=== PATIENT | male | born 1975 | race Two or more races ===

== ENCOUNTER 2016-07-04 17:58 | Emergency (ER) | payer MEDICAID ==
[~2016-07-04] VITALS: Ht 170.2 cm; Wt 81.6 kg
--- NOTE | 2016-07-04 18:05 | NUR ---
AAOX3, C/O LEFT FLANK PAIN- STARTED AT 0400 AM; SHARP 10/10; RADIATE TO HIS CHEST NO NAUSEA; NO VOMITING; NO FEVER. RESP IS EVEN AND UNLABORED WITH NAD NOTED. SKIN IS WARM AND DRY. AWAITING MD FOR EVAL.
--- NOTE | 2016-07-04 18:08 | NUR ---
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
[2016-07-04] MEDS ORDERED: MORPHINE SULFATE INJ 4 MG/ML DISP.SYRIN ONE (18:25)
[2016-07-04] MEDS ORDERED: KETOROLAC TROMETHAMINE INJ 30 MG/ML VIAL ONE (18:26)
[2016-07-04] MEDS ORDERED: ONDANSETRON HCL/PF 4 MG/2 ML VIAL ONE (18:26)
[2016-07-04] MEDS: ONDANSETRON HCL/PF 4 MG/2 ML VIAL IVP ONE (18:28)
[2016-07-04] MEDS: MORPHINE SULFATE INJ 2 MG/ML DISP.SYRIN IV ONE (18:30)
[2016-07-04] MEDS ORDERED: MORPHINE SULFATE INJ 10 MG/ML DISP.SYRIN IM ONE (18:30)
[2016-07-04] MEDS: KETOROLAC TROMETHAMINE INJ 30 MG/ML VIAL IV ONE (18:33)
[2016-07-04] MEDS: ONDANSETRON 4 MG TAB.RAPDIS SL ONE (18:33)
[2016-07-04 18:56] LABS: APPEARANCE,URINE Clear (CLEAR); BILIRUBIN,URINE Negative (NEGATIVE); BLOOD, URINE Trace-lysed Ery/uL (NEGATIVE); COLOR,URINE Yellow (YELLOW); KETONES,URINE Negative (NEGATIVE); LEUKOCYTE ESTERASE ,URINE Negative (NEGATIVE); NITRITE, URINE Negative (NEGATIVE); PROTEIN,URINE Negative (NEGATIVE); UGLUCOSE Negative (NEGATIVE); UROBILINOGEN,URINE 0.2 EU/dL (0.2)
[2016-07-04 19:05] LABS: ADD URINE CULTURE NO; BACTERIA,URINE None seen /HPF (None Seen); SQUAMOUS EPITHELIAL CELL,UR Few /HPF (None Seen); WBC,URINE 0-2 /HPF (0-3)
--- NOTE | 2016-07-04 19:07 | NUR ---
RECEIVED REPORT FROM PATO ORO FOR THOMAS.
--- NOTE | 2016-07-04 19:31 | NUR ---
PAC HONEY AT BEDSIDE SPEAKING TO PT REGARDING RESULTS/POC. EMT ZANE AT BEDSIDE TO TRANSLATE.
--- NOTE | 2016-07-04 19:43 | NUR ---
PT TO RADIOLOGY FOR CT ABD/PELVIS
--- NOTE | 2016-07-04 20:10 | NUR ---
PT RETURNED FROM CT.
[2016-07-04 20:17] LABS: BASOPHILS % (AUTO) 0.4 % (0.0-2.0); EOSINOPHILS # (AUTO) 0.2 /CMM (0.0-0.7); EOSINOPHILS % (AUTO) 2.2 % (0.0-6.0); HEMATOCRIT 45 % (39-51); HEMOGLOBIN 15.2 g/dL (13.5-17.5); LYMPHOCYTES % (AUTO) 26.8 % (20.0-44.0); MEAN CORPUSCULAR HEMOGLOBIN 30 PG (26.0-33.0); MEAN CORPUSCULAR HGB CONC 34 g/dl (31.0-36.0); MEAN CORPUSCULAR VOLUME 89 fL (80-96); MONOCYTES # (AUTO) 0.7 /CMM (0.1-1.30); NEUTROPHILS # (AUTO) 4.7 /CMM (1.8-8.9); NEUTROPHILS % (AUTO) 61.6 % (43.0-81.0); PLATELET COUNT (AUTO) 179 /CMM (150-450); RDW COEFFICIENT OF VARIATION 12.4 (11.5-15.0); RED BLOOD CELL COUNT(AUTO) 5.06 MIL/uL (4.5-6.0); WHITE BLOOD COUNT (AUTO) 7.6 K/uL (4.3-11.0)
[2016-07-04 20:24] LABS: CALCIUM, SERUM 9.1 mg/dL (8.5-10.1); CREATININE 1.2 mg/dL (0.6-1.3); POTASSIUM 3.9 mmol/L (3.5-5.1)
--- NOTE | 2016-07-04 20:56 | NUR ---
KEENAN MÉNDEZ AT BEDSIDE SPEAKING TO PT REGARDING RESULTS. ZANE AT BEDSIDE TO TRANSLATE
--- NOTE | 2016-07-04 21:12 | NUR ---
IV removed. Catheter intact and site benign. Pressure and 4x4 applied to site. No bleeding noted. Patient discharged to home in stable condition. Written and verbal after care instructions given. Patient verbalizes understanding of instruction. neelam bravo at bedside for translation. ambulatory with a steady gait. instructed pt not to drive. pt verbalize understanding.
[2016-07-04 21:15] VITALS: BP 135/68
== END 2016-07-04 21:16 | disposition home or self-care (01) ==
LOC: ER 18:02
DX: S33.9XXA Sprain of unspecified parts of lumbar spine and pelvis, initial encounter (principal); R79.89 Other specified abnormal findings of blood chemistry; X58.XXXA Exposure to other specified factors, initial encounter; Y93.89 Activity, other specified; Y92.89 Other specified places as the place of occurrence of the external cause; Y99.9 Unspecified external cause status
CPT/HCPCS: 36415; 74176; 80048; 81001; 85025; 96374; 96375; 99285; A4606; J1885; J2270; J2405; Z7610; 81000-TC

== ENCOUNTER 2017-02-10 11:56 | Emergency (ER) | payer MEDICAID ==
[~2017-02-10] VITALS: Ht 177.8 cm; Wt 86.2 kg
[2017-02-10 12:30] VITALS: BP 106/77
--- NOTE | 2017-02-10 14:10 | NUR ---
CALLED IN WR- NO TOMASAWER
--- NOTE | 2017-02-10 14:20 | NUR ---
CALLED IN WR- NO ANSWER
--- NOTE | 2017-02-10 14:26 | NUR ---
CALLED IN WR- NO ANSWER
== END 2017-02-10 14:27 | disposition left against medical advice (07) ==
LOC: ER 12:00
DX: Z53.21 Procedure and treatment not carried out due to patient leaving prior to being seen by health care provider (principal)
CPT/HCPCS: A4606; Z7610

== ENCOUNTER → 2017-09-25 | Emergency (ER) | payer MEDICAID, OTHER ==
[~2017-09-25] VITALS: Ht 177.8 cm; Wt 90.7 kg
[~2017-09-25] MED LIST: IV NS 0.9% 1,000 ML BAG IV ONE; KETOROLAC TROMETHAMINE 15 MG/ML VIAL ONE; KETOROLAC TROMETHAMINE INJ 30 MG/ML VIAL IV ONE; MORPHINE SULFATE INJ 2 MG/ML DISP.SYRIN IV ONE; MORPHINE SULFATE INJ 4 MG/ML DISP.SYRIN ONE; ONDANSETRON HCL/PF 4 MG/2 ML VIAL IVP ONE; ONDANSETRON HCL/PF 4 MG/2 ML VIAL ONE
--- NOTE | 2017-09-25 20:07 | NUR ---
PT AMBULATORY TO ER BED 10. BIB DAUGHTER C/O LUQ ABD PAIN RADIATES TO RUQ ABD X 2 YRS. WORSE THE PAST FEW DAYS. DENIES N/V/D. 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 VSS/RESP EVEN UNLABORED/NAD NOTED/SKIN WARM AND DRY/AFEBRILE/DENIES N-V-D/AOX4. AWAITNG MD [facility].
--- NOTE | 2017-09-25 20:30 | NUR ---
URINE SPECIMEN OBTIANED AND SENT TO THE LAB.
--- NOTE | 2017-09-25 20:35 | NUR ---
18G IV TO L AC X 1 ATTEMPT USING ASEPTIC TECH, BLOOD HANDED OVER TO THE LAB AT BEDSIDE. IV FLUSHES EASILY WITH NS, NO S/S INFILTRATION NOTED AT THIS TIME.
[2017-09-25 20:49] LABS: BASOPHILS % (AUTO) 0.6 % (0.0-2.0); EOSINOPHILS % (AUTO) 1.9 % (0.0-6.0); HEMATOCRIT 44 % (39-51); HEMOGLOBIN 15.1 g/dL (13.5-17.5); LYMPHOCYTES # (AUTO) 2.2 /CMM (0.8-4.8); LYMPHOCYTES % (AUTO) 29.3 % (20.0-44.0); MEAN CORPUSCULAR HEMOGLOBIN 31 PG (26.0-33.0); MEAN CORPUSCULAR HGB CONC 34 g/dl (31.0-36.0); MEAN CORPUSCULAR VOLUME 90 fL (80-96); MONOCYTES # (AUTO) 0.6 /CMM (0.1-1.30); MONOCYTES % (AUTO) 7.9 % (2.0-12.0); NEUTROPHILS # (AUTO) 4.6 /CMM (1.8-8.9); NEUTROPHILS % (AUTO) 60.3 % (43.0-81.0); PLATELET COUNT (AUTO) 178 /CMM (150-450); RDW COEFFICIENT OF VARIATION 12.1 (11.5-15.0); RED BLOOD CELL COUNT(AUTO) 4.92 MIL/uL (4.5-6.0); WHITE BLOOD COUNT (AUTO) 7.5 K/uL (4.3-11.0)
[2017-09-25 20:59] LABS: CALCIUM, SERUM 9.6 mg/dL (8.5-10.1); CARBON DIOXIDE 31 mmol/L (21-32); CHLORIDE 102 mmol/L (98-107); CREATININE 1.1 mg/dL (0.6-1.3); GLUCOSE 108 mg/dL (74-106); POTASSIUM 3.7 mmol/L (3.5-5.1); SODIUM SERUM 136 mmol/L (136-145); UREA NITROGEN, BLOOD 14 mg/dL (7-18)
[2017-09-25 21:06] LABS: TROPONIN I < 0.017 ng/mL (0.00-0.056)
[2017-09-25 21:14] LABS: ALANINE AMINOTRANSFERASE 63 U/L (12-78); ALBUMIN 4.2 g/dL (3.4-5.0); ALKALINE PHOSPHATASE 86 U/L (46-116); ASPARTATE AMINOTRANSFERASE 31 U/L (15-37); BILIRUBIN,DIRECT 0.1 mg/dL (0.0-0.2); BILIRUBIN,TOTAL 0.5 mg/dL (0.2-1.0); LIPASE 197 U/L (73-393); TOTAL PROTEIN, SERUM 7.9 g/dL (6.4-8.2)
--- NOTE | 2017-09-25 22:25 | NUR ---
IV removed. Catheter intact and site benign. Pressure and 4x4 applied to site. No bleeding noted. Patient discharged with daughter to home in stable condition. Written and verbal after care instructions given, patient instructed not to drive. Patient verbalizes understanding of instruction. Patient is awake and alert to self, day, and place. Patient ambulatory with a steady gait.
[2017-09-25 22:27] VITALS: BP 126/74
== END | disposition home or self-care (01) ==
LOC: ER 19:53
DX: R10.12 Left upper quadrant pain (principal); R10.13 Epigastric pain
CPT/HCPCS: 36415; 71045; 74176; 80048; 80076; 83690; 84484; 85025; 96374; 96375; 99285; A4606; J1885; J2270; J2405; J7030; Z7610

== ENCOUNTER 2018-01-22 18:48 | Emergency (ER) | payer OTHER ==
[~2018-01-22] VITALS: Ht 170.2 cm; Wt 81.6 kg
[2018-01-22 18:48] VITALS: BP 133/77
[2018-01-22] MEDS ORDERED: ACETAMINOPHEN 650 MG/20.3 ML UDC PO ONE (19:30)
--- NOTE | 2018-01-22 19:35 | NUR ---
FLU SWAB PERFORMED Addendum: 01/22/18 at 1935 by HFOX SENT TO LAB
[2018-01-22] MEDS ORDERED: ACETAMINOPHEN 650 MG/20.3 ML UDC ONE (19:43)
--- NOTE | 2018-01-22 19:47 | NUR ---
PT IN ULTRASOUND
== END 2018-01-22 21:14 | disposition home or self-care (01) ==
LOC: ER 18:51
DX: J06.9 Acute upper respiratory infection, unspecified (principal); R10.12 Left upper quadrant pain
CPT/HCPCS: 76700-TC; 87400; A4606; Z7610

== ENCOUNTER 2019-03-17 20:09 | Emergency (ER) | payer MEDICAID, OTHER ==
[~2019-03-17] VITALS: Ht 175.3 cm; Wt 81.6 kg
--- NOTE | 2019-03-17 20:13 | NUR ---
PT CALLED FOR TRIAGE, STATES "NO PASHTO MY FRIEND" PT WALKED OUT AND LEFT TO ER WAITING ROOM.
[2019-03-17 20:15] VITALS: BP 142/73
--- NOTE | 2019-03-17 20:20 | NUR ---
PT CAME INTO THE ED C/O COUGH, CONGESTION, SORE THROAT, BACK PAIN, EYE PAIN X4 DAYS. PT AAOX4, VSS, BREATHING EVEN AND UNLABORED ON RA W/ NAD NOTED. PT CONNECTED TO THE MONITOR AND POX.
--- NOTE | 2019-03-17 21:03 | NUR ---
Patient discharged to home in stable condition. Written and verbal after care instructions given. Patient verbalizes understanding of instruction.
== END 2019-03-17 21:03 | disposition home or self-care (01) ==
LOC: ER 20:20
DX: J06.9 Acute upper respiratory infection, unspecified (principal)

== ENCOUNTER 2019-10-07 15:50 | Emergency (ER) | payer MEDICAID ==
[~2019-10-07] VITALS: Ht 177.8 cm; Wt 99.8 kg
[2019-10-07 15:56] VITALS: BP 139/65
[2019-10-07] MEDS ORDERED: LIDOCAINE 1%-EPI 1:100,000 20 ML VIAL ONE (16:24)
[2019-10-07] MEDS ORDERED: TDAP [DIPH/PERTUSSIS/TET] 0.5 ML VIAL IM ONE ×2 (16:30→17:08)
[2019-10-07] MEDS ORDERED: LIDOCAINE 1%-EPI 1:100,000 50 ML VIAL IJ ONE (16:30)
--- NOTE | 2019-10-07 17:00 | NUR ---
LAC REPAIR BY DR. CORREA.
--- NOTE | 2019-10-07 17:30 | NUR ---
Patient discharged to home in stable condition. Written and verbal after care instructions given. Patient verbalizes understanding of instruction.
== END 2019-10-07 17:31 | disposition home or self-care (01) ==
LOC: ER 15:56
DX: S61.412A Laceration without foreign body of left hand, initial encounter (principal); W26.8XXA Contact with other sharp object(s), not elsewhere classified, initial encounter; Y93.89 Activity, other specified; Y92.89 Other specified places as the place of occurrence of the external cause; Y99.0 Civilian activity done for income or pay
CPT/HCPCS: 12002; 90471; 90715; 99283; A6403; J3490 ×2

== ENCOUNTER 2022-01-19 00:01 | Emergency (ER) | payer MEDICAID, OTHER ==
[~2022-01-19] VITALS: Ht 177.8 cm; Wt 79.4 kg
[2022-01-19 00:20] VITALS: BP 143/71
[2022-01-19] MEDS ORDERED: IBUPROFEN 600 MG TABLET ONE (00:25)
[2022-01-19] MEDS ORDERED: ACETAMINOPHEN ES 500 MG TABLET ONE (00:25)
[2022-01-19] MEDS ORDERED: ACETAMINOPHEN ES 500 MG TABLET PO ONE (00:30)
[2022-01-19] MEDS ORDERED: IBUPROFEN 600 MG TABLET PO ONE (00:30)
== END 2022-01-19 00:42 ==
LOC: ER 00:02
DX: S09.90XA Unspecified injury of head, initial encounter (principal); F17.200 Nicotine dependence, unspecified, uncomplicated; W51.XXXA Accidental striking against or bumped into by another person, initial encounter; Y93.89 Activity, other specified; Y92.89 Other specified places as the place of occurrence of the external cause; Y99.8 Other external cause status

== ENCOUNTER 2023-02-26 18:48 | Emergency (ER) | payer MEDICAID, OTHER | END 2023-02-26 20:15 | disposition left against medical advice (07) | LOC: ER 18:56 | DX: R10.9 Unspecified abdominal pain (principal); Z53.21 Procedure and treatment not carried out due to patient leaving prior to being seen by health care provider ==

== ENCOUNTER 2024-05-21 16:59 | Emergency (ER) | payer OTHER ==
[~2024-05-21] VITALS: Ht 175.3 cm; Wt 104.3 kg
[2024-05-21 17:34] VITALS: BP 135/81; TEMP 98.1
[2024-05-21] MEDS ORDERED: ACET325C7 PO (18:12)
[2024-05-21] MEDS ORDERED: FLUT16SP16 BNOSTRILS (18:12)
[2024-05-21] MEDS ORDERED: GUAI1TBM19 PO (18:12)
[2024-05-21] MEDS ORDERED: BENZ-13 PO (18:12)
[2024-05-21] MEDS ORDERED: KETOROLAC TROMETHAMINE INJ 30 MG/ML VIAL ONE (18:16)
[2024-05-21] MEDS ORDERED: ACETAMINOPHEN ES 500 MG TABLET ONE (18:16)
[2024-05-21] MEDS: ACETAMINOPHEN ES 500 MG TABLET PO ONE (18:20)
[2024-05-21] MEDS: KETOROLAC TROMETHAMINE INJ 30 MG/ML VIAL IM ONE (18:21)
[2024-05-21 18:36] VITALS: O2SAT 98
== END 2024-05-21 18:37 | disposition home or self-care (01) ==
LOC: ER 17:10
DX: B34.9 Viral infection, unspecified (principal); J06.9 Acute upper respiratory infection, unspecified; F17.200 Nicotine dependence, unspecified, uncomplicated; Z91.048 Other nonmedicinal substance allergy status
CPT/HCPCS: 99283; 96372; J1885